=== PATIENT | female | born 1965 | race Caucasian/White ===

== ENCOUNTER 2018-09-26 22:03 | Emergency (ER) | payer OTHER, SELFPAY ==
[2018-09-26 22:05] VITALS: BP 146/84; PULSE 75; RESP 14; TEMP 36.4; O2SAT 97; BMI 26.0
--- NOTE | 2018-09-26 22:31 | ED.VISSUMM ---
- ER Visit Summary Date of Service: 09/26/18 Chief Complaint: Left thumb laceration at work History of Present Illness: The patient is a 53 F right-hand dominant. States she works at [employer]. She was getting ceramic bowls out of the box 1 of them was broken and she accidentally lacerated her left thumb. This occurred within the last hour or so. She was unable to get it to stop bleeding. A centering to be evaluated. She thinks her last tetanus shot was around 10 years ago and will have an updated. She is right-handed dominant. No significant surgery to the left upper extremity. No other injuries. Physical Examination: Vital signs are stable afebrile. HEENT exam unremarkable. Neck nontender. Lungs clear to auscultation bilaterally. Heart regular rhythm no murmur. Abdomen soft nontender. She is moving all 4 extremities. They are neurovascularly intact. The left thumb on the distal palmar aspect she has a laceration approximately 2 cm in length. That is actively bleeding. There is no pulsatile bleeding. She has full flexion-extension all digits of the left hand. There is no bony deformity. There is no foreign body. There are no signs of infection. Test Results: None Emergency Department Course and Treatment: Left thumb laceration repair. Local anesthetic with lidocaine. Cleaned with iodine and washed with saline. Irrigated. Explored. Closed using 5-0 Ethilon suture. 2 simple interrupted sutures. Proper hemostasis and wound closure obtained. Patient tolerated procedure well. She was instructed on wound care. Treatment Plan: Suture removal in 10 days. Return if any signs of infection. Disposition: Discharge Impression: Left thumb laceration of 2 cm with ER repair Workers comp injury Tetanus updated This note was generated with [employer] dictation software. It may contain incorrect words, spelling, and punctuation that were not noted in review of the chart prior to signing ED Disposition - Plan for ED Patient: Disposition: Home or Assisted Living Chief Complaint: Laceration Instructions: ED Laceration Hand Referrals: Anthony Simon DO [Primary Care Provider] - Additional Instructions: Keep area clean and dry. May wash but dry thoroughly. Watch for any signs of infection. Keep covered at work. Suture removal in 10 days.
--- NOTE | 2018-09-26 22:34 | ED.DEP ---
ED Disposition - Plan for ED Patient: Disposition: Home or Assisted Living Chief Complaint: Laceration Instructions: ED Laceration Hand Referrals: [facility] [GROUP OF PHYSICIANS] - Additional Instructions: Keep area clean and dry. May wash but dry thoroughly. Watch for any signs of infection. Keep covered at work. Suture removal in 10 days.
[2018-09-26] MEDS: Diphth,Pertuss(Acell),Tet Vac 0.5 ML Vial IM (22:43)
[2018-09-26] MEDS: Lidocaine/Epi/Tetracaine 50 ML 1 APPLIC TOPICAL (22:45)
[2018-09-26 23:59] VITALS: BP 130/71; PULSE 85; RESP 16; O2SAT 97
== END 2018-09-27 00:01 | disposition home or self-care (01) ==
LOC: ED 22:38
PROVIDERS: Emergency Provider Emergency Medicine; Family Provider Preventive Medicine Occupational Medicine; PCP Preventive Medicine Occupational Medicine
DX: S61.012A Laceration without foreign body of left thumb without damage to nail, initial encounter (principal); Z23 Encounter for immunization; F41.9 Anxiety disorder, unspecified; F32.9 Major depressive disorder, single episode, unspecified; Z72.0 Tobacco use; Z79.899 Other long term (current) drug therapy; W26.8XXA Contact with other sharp object(s), not elsewhere classified, initial encounter; Y93.89 Activity, other specified; Y92.512 Supermarket, store or market as the place of occurrence of the external cause; Y99.0 Civilian activity done for income or pay
CPT/HCPCS: 12001; 90471; 90715; 99283

== ENCOUNTER → 2019-05-31 | Outpatient (CLI) | payer OTHER, SELFPAY ==
--- NOTE | 2019-05-31 09:32 | BI_ITS ---
MAMMOGRAPHY - BILATERAL SCREENING REASON FOR EXAM: Female, 53 years old. Routine annual screening examination. PERTINENT HISTORY: Non-contributory. TECHNIQUE: Digital bilateral breast wayne (3D mammographic acquisition) in the CC and MLO projections. 2-D mediolateral oblique (MLO) and craniocaudad (CC) views of both breasts were obtained. CAD: Full Field Digital Mammography with Computer Added Detection was performed. COMPARISON: Comparison is made with prior examination of July 30, 2009. FINDINGS: Breast Composition: The breasts are heterogeneously dense, which may obscure small masses. There are no dominant masses or suspicious calcifications. No other significant abnormalities are identified. There has been no significant change since the prior study. BI/SCREEN MAMM (CAD) W/WAYNE BILAT IMPRESSION: Stable bilateral screening mammogram. Yearly follow-up mammogram recommended. (A) ASSESSMENT CATEGORY: BIRADS Category 1: Negative. A letter regarding these results will be sent to the patient by the facility within 30 days. Approximately 10% of breast cancers are not detected by mammography. A normal mammogram should not delay biopsy of a clinically suspicious abnormality. [id number] Electronically Signed: Elgin Yeboah, at 11:23 EDT , Service support ,
--- NOTE | 2019-05-31 09:32 | BD_ITS ---
STUDY: DUAL ENERGY X-RAY ABSORPTIOMETRY / DXA REASON FOR EXAM: Female, 53 years old. Early menopause. No loss of height. TECHNIQUE: Bone Mineral Density (BMD) measurements of lumbar spine and bilateral hips were obtained. COMPARISON: None. FINDINGS: Lumbar Spine (L1-L4): g/cm2 (1.081) / T-score (-0.8) / Z-score (-0.2) Findings are suggestive of normal bone density with a low fracture risk. Left Femur Total: g/cm2 (0.860) / T-score (-1.2) / Z-score (-0.6) Left Femoral Neck: g/cm2 (0.903) / T-score (-1.0) / Z-score (-0.1) Right Femur Total: g/cm2 (0.828) / T-score (-1.4) / Z-score (-0.9) Right Femoral Neck: g/cm2 (0.870) / T-score (-1.2) / Z-score (-0.3) BD/Dexa Bone Density Study IMPRESSION: The patient is considered osteopenic as outlined below according to World Ar Organization (WHO) criteria with a low fracture risk. Reference Information: The T-score is the number of standard deviations above or below the standard which is normal for young adults at their peak bone mineral density. The World Health Organization (WHO) interprets the T-scores as follows: Above -1 Normal bone density Between -1 and -2.5 Osteopenia Equal to / or below -2.5 Osteoporosis As a practical clinical guideline, osteopenia may be graded as follows: Mild -1 through -1.5 Moderate -1.6 through -2.0 Severe -2.1 through -2.4 The Z-score is the number of standard deviations above or below age-matched controls. A Z-score of less than -1.5 would be considered abnormal. References: 1. NIH Osteoporosis and Related Bone Diseases http://www.osteo.org 2. International Society for Clinical Densitometry http://www.iscd.org 3. National Osteoporosis Foundation http://www.nof.org Electronically Signed: Elgin Yeboah, at 15:11 EDT , Service support ,
== END | disposition home or self-care (01) ==
PROVIDERS: Family Provider Preventive Medicine Occupational Medicine; PCP Preventive Medicine Occupational Medicine; Referring Provider Preventive Medicine Occupational Medicine; Visit Provider Preventive Medicine Occupational Medicine
DX: Z78.0 Asymptomatic menopausal state (principal); Z12.31 Encounter for screening mammogram for malignant neoplasm of breast
CPT/HCPCS: 77063; 77067; 77080

== ENCOUNTER → 2019-06-14 | Outpatient (CLI) | payer OTHER, SELFPAY ==
[2019-06-15 09:36] LABS: Hepatitis B Surface Antibody Reactive
== END | disposition home or self-care (01) ==
LOC: MFPLAB 16:40
PROVIDERS: Family Provider Preventive Medicine Occupational Medicine; PCP Preventive Medicine Occupational Medicine; Referring Provider Preventive Medicine Occupational Medicine; Visit Provider Preventive Medicine Occupational Medicine
DX: Z02.9 Encounter for administrative examinations, unspecified (principal)
CPT/HCPCS: 36415; 86706

== ENCOUNTER → 2019-08-29 | Outpatient (CLI) | payer OTHER, SELFPAY ==
--- NOTE | 2019-08-29 15:33 | RAD_ITS ---
STUDY: X-RAY - LEFT SHOULDER REASON FOR EXAM: Female, 54 years old. Left shoulder pain. TECHNIQUE: 4 view(s) of the shoulder. COMPARISON: None. FINDINGS: Normal glenohumeral articulation. Mild degenerative changes of the acromioclavicular joint. Normal acromion. Normal humeral head and visualized proximal humerus. The soft tissue structures are unremarkable. Normal visualized pulmonary apex. RAD/Shoulder min 2 Views IMPRESSION: Negative for fracture or dislocation. Mild degenerative changes of the acromioclavicular joint. Electronically Signed: Laila Chakraborty MD at 21:40 EDT , Service support ,
== END | disposition home or self-care (01) ==
LOC: MTRAD 15:31
PROVIDERS: Family Provider Preventive Medicine Occupational Medicine; PCP Preventive Medicine Occupational Medicine; Referring Provider Preventive Medicine Occupational Medicine; Visit Provider Preventive Medicine Occupational Medicine
DX: M25.512 Pain in left shoulder (principal)
CPT/HCPCS: 73030

== ENCOUNTER 2020-06-03 06:05 | Day surgery (SDC) | payer OTHER, SELFPAY ==
[2020-05-15 15:41] VITALS: BMI 26.0
--- NOTE | 2020-06-02 19:19 | PCM.HP.BLA ---
History and Physical Date of Admission: 06/03/20 HISTORY OF PRESENT ILLNESS 54 year old female presents for evaluation of increasing pain and triggering in her right ring finger and right long finger that has worsened over the last several months. She is right hand dominant. She has decreased range of motion of her right long and ring fingers at times. When her fingers get stuck, she has to use her left hand to straighten out the fingers. 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 She also has a ganglion cyst on the volar radial aspect left wrist that has been increasing in size but is not causing any symptomatology at this time. She will address the ganglion cyst next year after she recovers from her trigger finger surgery. PAST MEDICAL HISTORY Ganglion cyst of volar aspect of left wrist Trigger finger, right ring finger Trigger finger, right middle finger Anxiety and depression Arthritis Hives PAST SURGICAL HISTORY Bone spur carpal tunnel surgery tonsillectomy ALLERGIES bacitracin [From Neosporin (gbm-bia-vonmz)] neomycin [From Neosporin (imu-kzm-hfpev)] polymyxin B [From Neosporin (dij-lwv-lnoii)] MEDICATIONS Escitalopram Oxalate [Lexapro] htzogoa-szc-bch H2-rhsgbf-Vy tab zdmvrxzwv-crgxsoa-cdeqy acid FAMILY HISTORY Diabetes SOCIAL HISTORY Smoking Status: Current every day smoker alcohol intake: never substance use type: does not use REVIEW OF SYSTEMS General - Denies fever, fatigue, and weight loss. Eyes - Denies cataracts and glaucoma. History of tonsillectomy. ENT - Denies nasal congestion and sore throat. Endocrine - Denies excessive thirst and urination. Skin - Denies suspicious lesions and skin cancer. History of hives. Musculoskeletal - She has a history of joint pain, joint stiffness, and arthritis of her fingers. She complains of trigger fingers on her right long and ring fingers. She has a ganglion cyst on the volar radial aspect of her left wrist. History of bone spurs and having carpal tunnel repair. Neuro - Denies headaches. Cardiovascular - Denies chest pain, fatigue, and shortness of breath with exertion. Psych - History of anxiety and depression. Respiratory - Denies chronic cough and shortness of breath. Patient is a smoker. Gastrointestinal - Denies nausea, vomiting, diarrhea, and constipation. Hematologic - Denies abnormal bruising and bleeding. Genitourinary - Denies hematuria and urinary frequency. PHYSICAL EXAMINATION General - Alert and oriented. HEENT - PERRL. EOMI. Throat is clear. Neck - Supple and non-tender. No cervical adenopathy. Lungs- Clear to auscultation. Heart - Regular rate and rhythm. Abdomen - Soft and non distended. Extremities - FROM. No axillary adenopathy. Radial pulses are palpable. Patient is right hand dominant. Fingers are warm with good capillary refill. Minimal swelling seen. Patient can make a fist. No evidence of acute triggering today involving the right long finger and left ring finger. No audible clicking noted today. There is thickening in the area of the A1 alban in the distal palmar crease with some tenderness to palpation. Palm is soft. No sensory deficits. On the volar radial aspect left wrist with extension into the thenar eminence is a 3.5 cm ganglion cyst. No evidence of infection. No ulceration. The mass is nontender. There are no sensory deficits. She has no problems with activities of daily living with regard to this left wrist mass. Joseph test is ok on the left. Radial artery and ulnar artery are palpable. Neuro - CN II-XII grossly intact. Psych - Normal mood and affect. ASSESSMENT 1. Trigger finger right long finger. 2. Trigger finger right ring finger. 3. 3.5 cm ganglion cyst volar radial aspect left wrist with extension into thenar eminence. 4. Smoker. PLAN There are two issues that need surgery. 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 The ganglion cyst volar radial aspect left wrist with extension into the thenar eminence is not causing any painful symptomatology at this time and can be excised next year. Patient states she probably has to wait until then with respect to her job. That is ok as long as it stays asymptomatic. The mass is in the vicinity of the radial artery. 3.5 cm is quite large. There is concern that if it is not removed and it continues to enlarge, it may affect the patency of the radial artery. Before proceeding with the ganglion cyst surgery, an x-ray will be obtained. For the trigger finger surgery, will do both affected fingers (right long finger and right ring finger). Recommend incision tendon sheath A1 alban to release triggering of right long finger and right ring finger. Surgery will be done on an outpatient basis under [place] Block anesthesia and tourniquet control. A bulky dressing will be applied. She is free to use her fingers postoperatively. 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 The sutures will be removed in two weeks. For the ganglion cyst surgery, it will be done under general anesthesia and tourniquet control. I anticipate an extensive dissection for removal. A wrist splint will be applied for up to two weeks. The fingers will be free for movement postoperatively. I don't want her to do a lot of wrist motion initially during the postoperative period. After the splint is removed, if there is residual stiffness, she may need OT for range of motion exercises, strengthening, and edema management. 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 Patient was informed of the risks and complications of the procedure including alternatives to surgery. These were discussed with the patient personally. Patient voices understanding and wishes to proceed. Some of the risks and complications were included in a form from the [employer]. Some of the risks and complications that were discussed included but were not inclusive of failure to diagnose including symptom relief, pain, infection, numbness, stiffness, loss of digit, RSD (CRPS), need for further surgery, contracture, and wound healing problems. Encouraged patient to stop smoking as it may have deleterious effects on wound healing. We discussed the current risks associated with COVID-19. While it is understood that there is a community spread of COVID-19, the risk of delilah COVID-19 while at [facility] ([facility]) is very low; however, the risk cannot be completely mitigated because of the community spread of the disease. We discussed in detail the risk of exposure to and/or potential harm posed by the COVID-19 virus with having a surgery/procedure at this time versus the risk of delaying the surgery/procedure. It is not possible to know either the risk of delaying the surgery or procedure or chance of getting an infection with perfect accuracy, but a joint decision was made to proceed at this time with the scheduled surgery/procedure as indicated on the consent form. Patient was notified that we will need to comply with any screening or testing [facility] wishes to perform or that surgery may be delayed for any positive results. Discussed with the patient that I was tested for COVID-19 on 05/15/20. My test was negative. My testing regimen at this time is to be COVID-19 tested every 2 weeks or so. I was recently tested on 05/29/20, and that test was negative. Procedure Criteria Procedure Type: Elective COVID Risk Discussion: The surgeon/proceduralist and patient have discussed in detail the risk of exposure to and/or potential harm posed by the COVID-19 virus with having a surgery/procedure at this time versus the risk of delaying the surgery/procedure. It is not possible to know either the risk of delaying the surgery or procedure or chance of getting an infection with perfect accuracy, but a joint decision was made between the patient and the surgeon/proceduralist to proceed at this time with the scheduled surgery/procedure as indicated on the consent form.
[2020-06-03 06:25] VITALS: BP 130/78; PULSE 68; RESP 15; TEMP 36.7; O2SAT 98; BMI 24.2
[2020-06-03] MEDS: Lactated Ringers 1,000 ML 100 ML IV (06:34)
[2020-06-03] MEDS: Cefazolin 2 GM in 0.9% Normal Saline 100 ML IV (07:21)
[2020-06-03] MEDS: Mupirocin Ointment 22gm Tube 1 APPLIC (07:59)
--- NOTE | 2020-06-03 08:06 | PCM.OPRPT ---
Report of Operation Date of Procedure: 06/03/20 Pre-Operative Diagnosis: 1. Trigger finger right long finger. 2. Trigger finger right ring finger. 3. Smoker. Post-Operative Diagnosis: Same. Surgery/Procedure Performed:: 1. Incision tendon sheath right long finger for trigger finger. 2. Incision tendon sheath right ring finger for trigger finger.. Description of Surgical Findings:: 54 year old female presents for evaluation of increasing pain and triggering in her right ring finger and right long finger that has worsened over the last several months. She is right hand dominant. She has decreased range of motion of her right long and ring fingers at times. When her fingers get stuck, she has to use her left hand to straighten out the fingers. 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 She also has a ganglion cyst on the volar radial aspect left wrist that has been increasing in size but is not causing any symptomatology at this time. She will address the ganglion cyst next year after she recovers from her trigger finger surgery. Patient was informed of the risks and complications of the procedure including alternatives to surgery. These were discussed with the patient personally. Patient voices understanding and wishes to proceed. Some of the risks and complications were included in a form from the [employer]. Encouraged patient to stop smoking as it may have deleterious effects on wound healing. Total tourniquet time - 33 minutes. branch banker: None Type of Anesthesia:: Block,[place] Specimen's removed: None. Drains: None. Estimated Blood Loss (mL): 2 ml. Description of Procedure: Patient was taken to OR in supine position and Ama Block anesthesia was administered with the tourniquet inflated to 250 mmHg. The right upper extremity was prepped and draped in the usual fashion. SCD's were placed for DVT prophylaxis. Perioperative antibiotics were given intravenously. For the procedure, I wore an N95 mask and wore proper eye protection. Horizontal markings were made in the distal palmar crease area to the right long finger and right ring finger. Using xylocaine with epinephrine, the markings were infiltrated. After waiting 5 minutes for the anesthetic to take effect, horizontal incisions were made first in the ring finger and then secondly the long finger. Dissection was carried down to the tendon sheath A1 alban. Thickened alban was seen. Increased inflammation was seen. The dissection was done longitudinally to minimize injury to the digital nerves. Under direct vision and using a scalpel, an incision was made through the A1 alban up to the beginning of the A2 alban. The flexor tendons were able to glide very easily without clinical evidence of further tethering. I then proceeded with the long finger. A horizontal incision was made in the distal palmar crease and dissection was carried down to the tendon sheath A1 alban. Thickened alban was seen. Increased inflammation was seen. The dissection was done longitudinally to minimize injury to the digital nerves. Under direct vision and using a scalpel, an incision was made through the A1 alban up to the beginning of the A2 alban. The flexor tendons were able to glide very easily without clinical evidence of further tethering. The tourniquet was released after 28 minutes. Hemostasis was obtained with gentle pressure. The incisions were closed with 5-0 Nylon simple interrupted sutures and vertical mattress interrupted sutures. Antibiotic ointment was applied to the suture line followed by Xeroform gauze and 2x2 gauze followed by 2 inch Crystal wrap. Patient tolerated the procedure well and was sent to PACU in satisfactory condition. Patient will be sent home on antibiotics and pain medication. She will keep her right hand elevated during the initial postoperative period. Range of motion exercises will be encouraged to minimize stiffness. Patient will followup in a week for a wound check and for discussion of the pathology report. The sutures will be removed in two weeks. Grafts/Implants Used: None. - Complications None. - Admit VTE Documentation VTE Present on Admission: No VTE Mechan Device Prophylaxis: SCD's VTE Pharm Prophylaxis ordered?: No Surgery Charges CPT - 51118 ICD-10 - M65.331, F17.200 27849 M65.341, F17.200
[2020-06-03 08:08] VITALS: BP 130/78; BP 135/72; PULSE 72; RESP 16; TEMP 36.2; O2SAT 96
[2020-06-03 08:13] VITALS: BP 120/73; BP 130/78; PULSE 66; RESP 16; O2SAT 98
--- NOTE | 2020-06-03 08:15 | PCM.DC ---
You will use the following diet at home:: No restrictions Discharge Activity: May not drive while taking narcotic pain medications., May Shower - in one day. place plastic bag over right hand when showering., - - keep right hand elevated. no heavy lifting. Return to work on:: 06/17/20 - tentative. May shower in (days): 1 - wear plastic bag over right hand when showering. May resume sexual activity in: No Restrictions Weight Bearing Status: Weight bearing as tolerated Lifting Restrictions: 20 lbs. Keep extremity elevated above heart level: Right Arm Call your doctor if your incision/area has: Continuous Slow Oozing, Sudden Increased Bleeding, Increased Pain/ Swelling, Increased Redness, Foul Smelling Discharge, Swelling at the incision site Call your doctor if you observe: Fever of 101 or Higher, Coldness, Increased Pain, Shortness of breath, Chest pain, Calf discomfort, Uncontrolled pain Suture Line Care: - - after operative dressing removed in office, apply antibiotic ointment to suture line daily. Change Dressing in (Days):: 7 - will change dressing in office. Cleanse incision/area with: - - wear plastic bag over right hand when showering. Additional Instructions: encourage range of motion exercises to minimize stiffness. Allergies/Adverse Reactions: Allergies bacitracin [From Neosporin (ovo-hkq-zpkft)] Allergy (Verified 06/03/20 06:17) Rash neomycin [From Neosporin (jje-sln-aczuy)] Allergy (Verified 06/03/20 06:17) Rash polymyxin B [From Neosporin (hyi-tyy-bzrxy)] Allergy (Verified 06/03/20 06:17) Rash Medications to take at Discharge Escitalopram Oxalate [Lexapro] 20 mg PO DAILY 09/26/18 kdrfher-ksp-yfh F6-igojdo-Nx 1 tab PO TID 04/23/20 hxiijppwb-ippohbt-iwhka acid 400 mg-200 mg-1 mg tablet 1 tab PO TID 04/23/20 Cefadroxil [Duricef] 500 mg PO BID #8 cap 06/03/20 Oxycodone HCl/Acetaminophen [Percocet 5/325] 1 tablet PO Q6H PRN PRN 7 Days #28 tablet 06/03/20 The following prescriptions were given: Cefadroxil [Duricef] 500 mg PO BID #8 cap Transmission Status: Pending to [facility] Oxycodone HCl/Acetaminophen [Percocet 5/325] 1 tablet PO Q6H PRN PRN 7 Days #28 tablet PRN Reason: Pain Score 4-5/10 Transmission Status: Sent to [facility] Orders to be completed after discharge: CORONAVIRUS 19, MARSHA SCREEN Time Frame: 05/29/20, Facility: [facility], Location: Laboratory Primary Care Physician: Anthony Simon DO [Primary Care Provider] - Test Results: Test results from this visit will be discussed in further detail at your follow-up appointment, if applicable. Please Follow Up With: Jonnathan Christianson MD When: one week. call [phone] for appt. Proposed Discharge Date: 06/03/20
[2020-06-03 08:18] VITALS: BP 130/78; BP 131/77; PULSE 64; RESP 16; O2SAT 95
[2020-06-03 08:23] VITALS: BP 127/76; BP 130/78; PULSE 58; RESP 16; TEMP 36.2; O2SAT 96
[2020-06-03 09:15] VITALS: BP 120/69; BP 130/78; PULSE 55; RESP 18; TEMP 36.1; O2SAT 100
== END 2020-06-03 09:24 | disposition home or self-care (01) ==
LOC: SDC 06:07 → AC 06:08
PROVIDERS: PCP Preventive Medicine Occupational Medicine; Referring Provider Surgery; Visit Provider Surgery
PROC: (CPT 26055; principal; 2020-06-03 07:20)
DX: M65.341 Trigger finger, right ring finger (principal); M65.331 Trigger finger, right middle finger; F17.200 Nicotine dependence, unspecified, uncomplicated; M67.432 Ganglion, left wrist; F41.9 Anxiety disorder, unspecified; F32.9 Major depressive disorder, single episode, unspecified; M19.90 Unspecified osteoarthritis, unspecified site; Z79.899 Other long term (current) drug therapy
CPT/HCPCS: 01810; 26055 ×2; 87635; G2023; J7120; U0003

== ENCOUNTER → 2021-02-09 12:28 | Outpatient (CLI) | payer OTHER, SELFPAY ==
[2020-07-03 16:33] VITALS: BMI 24.2
--- NOTE | 2021-02-09 12:31 | BI_ITS ---
MAMMOGRAPHY - BILATERAL SCREENING REASON FOR EXAM: Female, 55 years old. Routine annual screening examination. PERTINENT HISTORY: Non-contributory. TECHNIQUE: Digital bilateral breast wayne (3D mammographic acquisition) in the CC and MLO projections. 2-D mediolateral oblique (MLO) and craniocaudad (CC) views of both breasts were obtained. CAD: Full Field Digital Mammography with Computer Added Detection was performed. COMPARISON: Comparison is made with prior study of 05/31/2019. FINDINGS: Breast Composition: The breasts are heterogeneously dense, which may obscure small masses. There are no dominant masses or suspicious calcifications. No other significant abnormalities are identified. There has been no significant change since the prior study. BI/SCRN MAMM (CAD)W/WAYNE BILAT IMPRESSION: Stable bilateral screening mammogram. Yearly follow-up mammogram recommended. (A) ASSESSMENT CATEGORY: BIRADS Category 1: Negative. A letter regarding these results will be sent to the patient by the facility within 30 days. Approximately 10% of breast cancers are not detected by mammography. A normal mammogram should not delay biopsy of a clinically suspicious abnormality. [id number] Electronically Signed: Elgin Yeboah MD at 14:43 EDT , Service support ,
== END ==
PROVIDERS: PCP Preventive Medicine Occupational Medicine; Referring Provider Preventive Medicine Occupational Medicine; Visit Provider Preventive Medicine Occupational Medicine
DX: Z12.31 Encounter for screening mammogram for malignant neoplasm of breast (principal)
CPT/HCPCS: 77063; 77067

== ENCOUNTER → 2021-09-09 16:33 | Outpatient (CLI) | payer OTHER, SELFPAY ==
[2021-09-09 18:08] LABS: Hemoglobin 12.6 g/dL (12.0-15.0); Mean Corp Hgb Conc 33.2 g/dL (32-36); Mean Corpuscular Hgb 29.4 pg (27.0-32.0); Mean Corpuscular Volume 88.8 fL (81-99); Mean Platelet Vol. 11.2 fl (6.2-12.0); Platelet Count 205 K/mm3 (150-450); RBC Distribution Width CV 13.7 % (11.6-14.6); RBC Distribution Width SD 44.7 fl (35.1-43.9); Red Blood Count 4.28 M/mm3 (4.2-5.4); White Blood Count 8.3 K/mm3 (4.4-11.0)
[2021-09-09 18:56] LABS: AST(SGOT) 12 U/L (15-37); Alanine Aminotransfer ALT/SGPT 17 U/L (13-56); Albumin, Serum 3.5 g/dL (3.2-5.0); Alkaline Phosphatase 78 U/L (45-117); Anion Gap 5 (5-15); BUN 13 mg/dL (7-18); BUN/Creat Ratio 11.2 RATIO (10-20); Chloride 109 mmol/L (98-107); Cholesterol 158 mg/dL (200); Creatinine, Serum 1.16 mg/dL (0.55-1.02); EST Glomerular Filtration Rate 52 mL/min (>60); Est Glom Filt Rate - Afr Amer 62 mL/min (>60); Globulin 3.5 g/dL (2.2-4.2); Glucose 91 mg/dL (74-106); High Density Lipoprotein 60 mg/dL; Sodium Level 140 mmol/L (136-145); Triglycerides 64 mg/dL; Very Low Density Lipoprotein 13 mg/dL (5-40)
== END ==
PROVIDERS: PCP Preventive Medicine Occupational Medicine; Referring Provider Preventive Medicine Occupational Medicine; Visit Provider Preventive Medicine Occupational Medicine
DX: Z00.00 Encounter for general adult medical examination without abnormal findings (principal)
CPT/HCPCS: 36415; 80053; 80061; 85027

== ENCOUNTER → 2023-02-22 | Outpatient (CLI) | payer BC, SELFPAY ==
--- NOTE | 2023-02-22 14:49 | BI_ITS ---
MAMMOGRAPHY - BILATERAL SCREENING 3-D TOMOSYNTHESIS REASON FOR EXAM: Female, 57 years old. Routine screening PERTINENT HISTORY: No significant family history. TECHNIQUE: 2-D mammograms and 3-D Tomosynthesis of the breast (s) were performed. CAD was performed. COMPARISON: 02/09/2021 FINDINGS: The breast composition is heterogeneously dense that can obscure small breast masses. Scattered benign calcifications are seen. No dense spiculated masses or suspicious microcalcifications are identified. No architectural distortion is identified. There is no skin thickening or retraction. There has been no significant change since the prior study. BI/SCRN MAMM (CAD)W/WAYNE BILAT IMPRESSION: No mammographic signs of malignancy. Routine yearly mammograms recommended. ASSESSMENT CATEGORY: BIRADS Category 2: Benign. A letter regarding these results will be sent to the patient by the facility within 30 days. FOLLOW UP RECOMMENDATION: Yearly follow up mammogram recommended. (A) Approximately 10% of breast cancers are not detected by mammography. A normal mammogram should not delay biopsy of a clinically suspicious abnormality. Electronically Signed: Spenser Vela MD at 7:43 EDT ,
--- NOTE | 2023-02-22 14:56 | BD_ITS ---
STUDY: DUAL ENERGY X-RAY ABSORPTIOMETRY / DXA REASON FOR EXAM: Female, 57 years old. M85.89 TECHNIQUE: Bone Mineral Density (BMD) measurements of lumbar spine and bilateral hips were obtained. COMPARISON: Comparison is made with prior study dated May 31, 2019. FINDINGS: Lumbar Spine (L1-L4): g/cm2 (0.892) / T-score (-1.1) / Z-score (0.0) Findings are suggestive of osteopenia with a low fracture risk. Left Femur Total: g/cm2 (0.813) / T-score (-1.1) / Z-score (-0.3) Left Femoral Neck: g/cm2 (0.713) / T-score (-1.2) / Z-score (-0.1) Right Femur Total: g/cm2 (0.803) / T-score (-1.1) / Z-score (-0.4) Right Femoral Neck: g/cm2 (0.704) / T-score (-1.3) / Z-score (-0.2) The T-Scores on the most recent prior examination were: Lumbar Spine (L1-L4): There has been worsening of bone density since the previous examination. Left Femur Total: which represents an improvement of 1.9%. Right Femur Total: which represents an improvement of 4.6%. BD/Dexa Bone Density Study IMPRESSION: The patient is considered osteopenic as outlined below according to World Ar Organization (WHO) criteria with a low fracture risk. There has been improvement of bone density since the previous examination. Reference Information: The T-score is the number of standard deviations above or below the standard which is normal for young adults at their peak bone mineral density. The World Health Organization (WHO) interprets the T-scores as follows: Above -1 Normal bone density Between -1 and -2.5 Osteopenia Equal to / or below -2.5 Osteoporosis As a practical clinical guideline, osteopenia may be graded as follows: Mild -1 through -1.5 Moderate -1.6 through -2.0 Severe -2.1 through -2.4 The Z-score is the number of standard deviations above or below age-matched controls. A Z-score of less than -1.5 would be considered abnormal. References: 1. NIH Osteoporosis and Related Bone Diseases www osteo.org 2. International Society for Clinical Densitometry www iscd.org 3. National Osteoporosis Foundation www nof.org Electronically Signed: Elgin Yeboah MD at 9:41 EDT ,
== END | disposition home or self-care (01) ==
PROVIDERS: PCP Preventive Medicine Occupational Medicine; Referring Provider Preventive Medicine Occupational Medicine; Visit Provider Preventive Medicine Occupational Medicine
DX: M85.89 Other specified disorders of bone density and structure, multiple sites (principal); Z12.31 Encounter for screening mammogram for malignant neoplasm of breast
CPT/HCPCS: 77063; 77067; 77080

== ENCOUNTER → 2025-02-26 | Outpatient (CLI) | payer BC, SELFPAY ==
--- NOTE | 2025-02-26 09:14 | BI_ITS ---
EXAM: SCRN MAMM (CAD)W/WAYNE BILAT DATE: 02/26/2025 CLINICAL HISTORY: F, Age 59 y/o , SCREENING No family history. BREAST CANCER RISK ASSESSMENT: Not assessed. TECHNIQUE: Bilateral screening digital breast tomosynthesis with 2D and 3D images. Computer aided detection. COMPARISON: Prior exam(s) dated comparison is made with prior study dated February 22, 2023.. FINDINGS: TISSUE DENSITY: The breast tissue is heterogenously dense, which may obscure small masses. Bilateral Breast Mammographic Findings: No significant masses, calcifications or other abnormalities are identified. No suspicious masses, areas of developing architectural distortion, or suspicious calcifications. There has been no significant interval change. BI/SCRN MAMM (CAD)W/WAYNE BILAT IMPRESSION: Right Breast: BIRADS 1 NEGATIVE. Left Breast: BIRADS 1 NEGATIVE. OVERALL FINAL ASSESSMENT: BIRADS 1 NEGATIVE RECOMMENDATION: Routine annual follow-up in 1 Year A letter with findings and recommendations will be mailed to the patient. Reading Location: [place] [id number]
--- NOTE | 2025-02-26 09:17 | BD_ITS ---
PROCEDURE: DEXA BONE DENSITY STUDY 02/26/2025 REASON FOR EXAM: F, age 59 y/o . Postmenopausal. TECHNIQUE: DXA scan of the lumbar spine and left hip, using make and model. REFERENCE LINKS: [facility] Adult Positions COMPARISON: Comparison is made with prior study dated February 22, 2023. FINDINGS: BMD and T-SCORES Lumbar spine: 0.934 g/cm2, T-Score -0.8 0.5 change from prior: Improvement by 4.7% Left femoral neck: 0.731 g/cm2, T-Score -1.1 Femoral neck comparison data not recommended for monitoring change. Left total hip: 0.831 g/cm2, T-Score -0.9 Change from prior: Improvement by 2.2% Right femoral neck: 0.756 g/cm2, T-Score -0.8 Femoral neck comparison data not recommended for monitoring change. Right total hip: 0.810 g/cm2, T-Score -1.1 Change from prior: Improvement by 0.9% Fracture Risk Calculation: FRAX (10-year Fracture Risk) Score: FRAX scores should never be reported in a patient with osteoporosis on DEXA or for any patient that is on bone medication. The patient doesmeet the pharmacological treatment recommendations for prevention of osteoporosis BD/Dexa Bone Density Study IMPRESSION: OSTEOPENIA. Recommend follow-up as clinically warranted. Reading Location: [place] [id number]
== END | disposition home or self-care (01) ==
LOC: OPBD 09:13
PROVIDERS: PCP Preventive Medicine Occupational Medicine; Referring Provider Preventive Medicine Occupational Medicine; Visit Provider Preventive Medicine Occupational Medicine
DX: Z12.31 Encounter for screening mammogram for malignant neoplasm of breast (principal); Z78.0 Asymptomatic menopausal state; M85.80 Other specified disorders of bone density and structure, unspecified site; Z13.820 Encounter for screening for osteoporosis
CPT/HCPCS: 77063; 77067; 77080